=== PATIENT | female | born 1985 | race Caucasian/White ===

== ENCOUNTER 2021-09-19 16:32 | Inpatient (IN) | payer BC ==
[2021-09-19] MEDS ORDERED: Lactated Ringers 500 ML IV ONE (17:10)
[2021-09-19] MEDS ORDERED: Ampicillin 2 GM in Sodium Chloride 0.9% 100 ML IV ONE (17:10)
[2021-09-19] MEDS ORDERED: Oxytocin/Lactated Ringers 10 UNIT/1,000 ML BAG IV ONE (17:45)
[2021-09-19] MEDS ORDERED: Benzocaine/Menthol 20%-0.5% Spray 78 GM Cannister TOP PRN (19:20)
[2021-09-19] MEDS ORDERED: Ibuprofen 600 MG Tab PO PRN (19:20)
[2021-09-19] MEDS ORDERED: Acetaminophen 325 MG Tab PO PRN (19:20)
[2021-09-19] MEDS ORDERED: Witch Hazel Medicated Pads 40/Jar TOP PRN (19:20)
[2021-09-19] MEDS ORDERED: Docusate Sodium 100 MG Cap PO PRN (19:20)
[2021-09-20] MEDS ORDERED: Prenatal Multivitamin with Calcium/Folic Acid/Iron Tab PO SCH (09:00)
[2021-09-20 11:15] VITALS: BP 109/53; PULSE 90
== END 2021-09-20 08:25 | disposition home or self-care (01) | DRG 560 ==
LOC: JD.OBCHECK 16:32 → JD.OB 17:00 → JD.OBCHECK 17:27 → OBSVTOIN 17:41 → JD.OB 17:42
PROVIDERS: ADMIT Obstetrics & Gynecology; ATTEND Obstetrics & Gynecology
PROC: 10E0XZZ Delivery of Products of Conception, External Approach (ICD-10-PCS; principal; 2021-09-20)
PROC: 10907ZC Drainage of Amniotic Fluid, Therapeutic from Products of Conception, Via Natural or Artificial Opening (ICD-10-PCS; 2021-09-20)
DX: O60.14X0 Preterm labor third trimester with preterm delivery third trimester, not applicable or unspecified (principal); Z3A.34 34 weeks gestation of pregnancy; Z37.0 Single live birth; O45.93 Premature separation of placenta, unspecified, third trimester
CPT/HCPCS: 59025; 59409; 87653; A9270-GY; J0290; J2590; J7120

== ENCOUNTER 2022-09-10 21:26 | Inpatient (IN) | payer BC ==
[2022-09-10] MEDS ORDERED: Betamethasone Acetate/Betamethasone Sod Phosphate 6 MG/1 ML MDV IM ONE (21:50)
[2022-09-10] MEDS ORDERED: Sodium Chloride 0.9% 10 ML Syringe FLUSH PRN ×2 (21:51→22:50)
[2022-09-10] MEDS ORDERED: Ampicillin 2 GM in Sodium Chloride 0.9% 100 ML IV ONE (22:00)
[2022-09-10] MEDS ORDERED: Magnesium Sulfate/Water 40 GM/1,000 ML BAG ONE (22:09)
[2022-09-10] MEDS ORDERED: [UNRECOGNIZED DRUG - OTHER] ONE (22:09)
[2022-09-10] MEDS ORDERED: MAGNESIUM SULFATE ONE (22:09)
[2022-09-10 22:28] LABS: HEMATOCRIT 33.1 % (34.1-44.9); HEMOGLOBIN 11.1 gm/dl (11.2-15.7); MEAN CORPUSCULAR HEMOGLOBIN 28.8 pg (25.6-32.2); MEAN CORPUSCULAR HGB CONC 33.5 g/dl (32.2-35.5); MEAN CORPUSCULAR VOLUME 85.8 fl (79.4-94.8); MEAN PLATELET VOLUME 10.2 fl (9.4-12.3); PLATELET COUNT,PLT 282 K/mm3 (182-369); RED BLOOD CELL COUNT 3.86 M/mm3 (3.98-5.22); WHITE BLOOD CELL COUNT,WBC 13.82 K/mm3 (3.98-10.04)
[2022-09-10] MEDS ORDERED: Lactated Ringers 1,000 ML IV SCH (22:30)
[2022-09-10] MEDS ORDERED: Nalbuphine 10 MG/0.5 ML Syringe IVPUSH PRN (22:50)
[2022-09-10] MEDS ORDERED: Bupivacaine/fentaNYL/NS 100 ML Bag EPIDUR PRN (22:52)
[2022-09-10] MEDS ORDERED: fentaNYL 100 MCG/2 ML SDV EPIDUR PRN (22:52)
[2022-09-10] MEDS ORDERED: diphenhydrAMINE 50 MG/ML SDV IVPUSH PRN (22:52)
[2022-09-10] MEDS ORDERED: ePHEDrine 50 MG/ML SDV IVPUSH PRN (22:52)
[2022-09-10] MEDS ORDERED: Ropivacaine 0.2% PF 2 MG/ML 20 ML SDV ONE (23:00)
[2022-09-10] MEDS ORDERED: Oxytocin/Lactated Ringers 10 UNIT/1,000 ML BAG IV SCH (23:45)
[2022-09-10] MEDS ORDERED: Oxytocin/Lactated Ringers 10 UNIT/1,000 ML BAG IV ONE (23:49)
[2022-09-11] MEDS ORDERED: Ibuprofen 600 MG Tab PO PRN (00:11)
[2022-09-11] MEDS ORDERED: Witch Hazel Medicated Pads 40/Jar TOP PRN (00:11)
[2022-09-11] MEDS ORDERED: Benzocaine/Menthol 20%-0.5% Spray 78 GM Cannister TOP PRN (00:11)
[2022-09-11] MEDS ORDERED: Docusate Sodium 100 MG Cap PO PRN (00:11)
[2022-09-11] MEDS ORDERED: Acetaminophen 325 MG Tab PO PRN (00:11)
[2022-09-11 01:03] LABS: BICARBONATE,ARTERIAL UMBILICAL 23.4 (24-26); PCO2 UMBILICAL ARTERIAL 56.4 (42-58); PH,UMBILICAL ARTERIAL 7.24 (7.22-7.32)
[2022-09-11 01:04] LABS: BICARBONATE,VENOUS UMBILICAL 23.1 (19-24); PCO2 UMBILICAL VENOUS 50.8 (32.8-38.6); PH,UMBILICAL VENOUS 7.28 (7.28-7.40)
[2022-09-11 01:07] VITALS: BP 131/76; PULSE 95
[2022-09-11] MEDS ORDERED: Sodium Chloride 0.9% 10 ML Syringe FLUSH SCH ×2 (09:00)
[2022-09-11 20:57] LABS: GROUP B STREP BY PCR NEGATIVE (NEGATIVE)
== END 2022-09-11 02:00 | disposition home or self-care (01) | DRG 560 ==
LOC: JD.OBCHECK 21:26 → JD.OB 21:29 → JD.OBCHECK 22:49 → JD.OB 22:50 → OBSVTOIN 23:51
PROVIDERS: ADMIT Obstetrics & Gynecology; ATTEND Obstetrics & Gynecology
PROC: 10E0XZZ Delivery of Products of Conception, External Approach (ICD-10-PCS; principal; 2022-09-10)
PROC: 10907ZC Drainage of Amniotic Fluid, Therapeutic from Products of Conception, Via Natural or Artificial Opening (ICD-10-PCS; principal; 2022-09-10)
DX: O60.14X0 Preterm labor third trimester with preterm delivery third trimester, not applicable or unspecified (principal); O76 Abnormality in fetal heart rate and rhythm complicating labor and delivery; Z37.0 Single live birth; Z3A.30 30 weeks gestation of pregnancy
CPT/HCPCS: 36415; 36600; 59025; 59409; 82803; 85027; 86592; 86850; 86900; 86901; 87653; J0290; J0702; J2590; J2795; J3475; J3490; J7120